=== PATIENT | male | born 1960 | race Caucasian/White ===

== ENCOUNTER 2018-11-26 19:40 | Inpatient (IN) | payer MEDICARE, MEDICAID ==
[~2018-11-26] VITALS: Ht 172.7 cm; Wt 62.1 kg
--- NOTE | 2018-11-26 20:06 | NUR ---
PATIENT [facility] MEDICAL FLOOR ON A 14 DAY HOLD FOR DTS,GD. PATIENT A/OX3. CALM AND COOPERATIVE, WITH PERIODS OF ANXIETY. IN NO ACUTE DISTRESS. NO MEDICAL COMPLAINTS ASIDE MILD PAIN ON RAJAT. UE WITH MOBILITY. BED ON LOCK POSITION. FALL PRECAUTION PER PROTOCOL. SUICIDE PRECAUTION INITIATED. 1:1 SITTER AT CLOSE PROXIMITY.
[2018-11-26 20:25] LABS: BASOPHILS # (AUTO) 0.1 K/uL (0.0-8.0); BASOPHILS % (AUTO) 0.9 % (0.0-2.0); EOSINOPHILS # (AUTO) 0.1 K/uL (0.0-0.7); EOSINOPHILS % (AUTO) 1.3 % (0.0-7.0); HEMATOCRIT 33.7 % (36.7-47.1); HEMOGLOBIN 11.5 g/dL (12.5-16.3); LYMPHOCYTES # (AUTO) 1.6 K/uL (20.0-40.0); LYMPHOCYTES % (AUTO) 28.8 % (20.5-51.5); MEAN CORPUSCULAR HGB CONC 34 g/dL (32.5-36.3); MEAN CORPUSCULAR VOLUME 94.1 fL (73.0-96.2); MONOCYTES # (AUTO) 0.5 K/uL (2.0-10.0); MONOCYTES % (AUTO) 9.2 % (0.0-11.0); NEUTROPHILS # (AUTO) 3.3 K/uL (1.8-8.9); NEUTROPHILS % (AUTO) 59.8 % (38.5-71.5); PLATELET COUNT (AUTO) 351 K/uL (152-348); RED BLOOD CELL COUNT(AUTO) 3.58 MIL/uL (4.06-5.63); WHITE BLOOD COUNT (AUTO) 5.5 K/uL (3.6-10.2)
--- NOTE | 2018-11-26 20:25 | NUR ---
ACTIVATED SLUDGE OPERATOR IN ROOM FOR CHEST XR.
[2018-11-26 20:28] LABS: CARBON DIOXIDE 34 mmol/L (21-32); CHLORIDE 103 mmol/L (98-107); CREATININE 1.1 mg/dL (0.6-1.3); GLUCOSE 100 mg/dL (74-106); POTASSIUM 3.8 mmol/L (3.5-5.1); UREA NITROGEN, BLOOD 12 mg/dL (7-18)
--- NOTE | 2018-11-26 20:29 | NUR ---
ALLIE BARROSO at bedside for MSE.
[2018-11-26 20:34] LABS: ALANINE AMINOTRANSFERASE 13 U/L (16-63); ALKALINE PHOSPHATASE 71 U/L (50-136); ASPARTATE AMINOTRANSFERASE 8 U/L (15-37); BILIRUBIN,DIRECT 0.1 mg/dL (0.0-0.2); BILIRUBIN,TOTAL 0.4 mg/dL (0.2-1.0); TOTAL PROTEIN, SERUM 6.7 g/dL (6.4-8.2)
[2018-11-26 20:42] LABS: THYROID STIMULATING HORMONE 2.108 mIU/mL (0.358-3.740)
[2018-11-26 20:43] LABS: ETHANOL < 3 MG/DL (0-0)
--- NOTE | 2018-11-26 20:49 | NUR ---
Patient states he urinated prior to arriving to ER, unable to urinate at this time. Fluids provided per patient request.
[2018-11-26 21:22] LABS: *BILIRUBIN,URIN 1+ (NEGATIVE); *CLARITY,URINE CLEAR (CLEAR); *COLOR,URINE DARK YELLOW (YELLOW); *KETONES,URINE TRACE (NEGATIVE); LEUKOCYTE ESTERASE ,URINE NEGATIVE (NEGATIVE); NITRITE, URINE NEGATIVE (NEGATIVE); UGLUCOSE NEGATIVE (NEGATIVE)
[2018-11-26 21:25] LABS: *BLOOD, URINE TRACE (NEGATIVE)
[2018-11-26 21:29] LABS: RBC,URINE 0-3 /HPF (0-3)
[2018-11-26 21:30] LABS: WBC,URINE 0-3 /HPF (0-3)
[2018-11-26] MEDS ORDERED: AMLO5TAB9 PO (21:30)
[2018-11-26] MEDS ORDERED: SENN-168 PO (21:30)
[2018-11-26] MEDS ORDERED: PANT40TA4 PO (21:30)
[2018-11-26] MEDS ORDERED: OLAN5TAB3 PO (21:30)
[2018-11-26 21:31] LABS: SQUAMOUS EPITHELIAL CELL,UR FEW /HPF (NONE SEEN)
[2018-11-26 21:35] LABS: *AMPHETAMINE, URINE NEGATIVE (NEGATIVE); *BARBITURATE, URINE NEGATIVE (NEGATIVE); *CANNABINOID, URINE NEGATIVE (NEGATIVE); *COCCAINE, URINE NEGATIVE (NEGATIVE); *OPIATE, URINE NEGATIVE (NEGATIVE); *PHENCYCLIDINE SCREEN,URINE NEGATIVE (NEGATIVE)
--- NOTE | 2018-11-26 21:40 | NUR ---
Report given to receiving RN. MRSA swab collected. Pt. admitted to GPS , under care of Dr. Razo/Veronika Belongs List completed
[2018-11-26] MEDS ORDERED: MAG HYDROX/AL HYDROX/SIMETH 30 ML LIQUID UDC PO PRN (21:45)
[2018-11-26] MEDS ORDERED: ACETAMINOPHEN 325 MG TABLET PO PRN (21:45)
[2018-11-26] MEDS ORDERED: TEMAZEPAM 7.5 MG CAPSULE PO PRN (21:45)
[2018-11-26] MEDS ORDERED: LORAZEPAM 1 MG TABLET PO PRN (21:45)
[2018-11-26] MEDS ORDERED: MAGNESIUM HYDROXIDE 30 ML LIQUID UDC PO PRN (21:45)
--- NOTE | 2018-11-26 23:02 | NUR ---
AT APPROX 2200, ADMITTED 58 YEARS OLD MALE FROM [facility] ER TO [facility] MHU ON A 5250 FOR DTS AND GD. PER HOLD, ON 11/20/18, PATIENT'S MOTHER REQUESTED A PSYCH EVALUATION D/T PATIENT STAYING IN A MOTEL 6 SINCE 11/03/18 AND HAS NOT BEEN EATING OR DRINKING, IS DEPRESSED AND STAY IN BED ALL DAY AND HAS BEEN OFF HIS PSYCH MEDS FOR 4 MONTHS. PATIENT WAS THEN TAKEN TO [facility] ED AND WAS PLACED ON A 5150 HOLD FOR DTS AND GD ON 11/20/18. ON 11/21/18, HE WAS TAKEN TO [facility]; HOWEVER, ON 11/22/18, HE WAS TRANSPORTED BACK TO [facility] ED D/T HEMATEMESIS. PATIENT WAS ADMITTED TO [facility] MED [facility]G UNIT AND WAS PLACED ON 14 DAY HOLD FOR GD AND DTS. ONCE MEDICALLY CLEARED, HE WAS TRANSP[facility] TO [facility]. HIS 14 DAY HOLD WILL BE UP ON 12/06/18. PER ADMISSION DISCHARGED NOTED, PATIENT HAS A PRIOR SA 3 WEEKS AGO BY CUTTING HIS WRIST. HE ALSO HAS NOT SEEN HIS DOCTOR IN 1.5 YEARS. UPON ADMISSION, PATIENT NOTED A/O X 4, ABLE TO AMBULATE WITH STEADY GAIT. HE WAS NOTED GUARDED, SUSPICIOUS, EASILY IRRITABLE. HE STATED, "I AM TIRED TO ANSWER THE SAME QUESTION OVER AND OVER AGAIN". HOWEVER, HE WAS ABLE TO SIGN HIS ADMISSION PAPER. UPON INTERVIEW, PATIENT STATED THAT HE IS FEELING DEPRESSED AND SUICIDAL WITHOUT A PLAN. WHEN ASK WHY? HE STATED, "JUST MY CONDITION MAKES ME DEPRESSED" BUT REFUSED TO ELABORATED FURTHER. HE ALSO DENIED HI/VH/AH. HE IS ABLE TO CFS. BODY ASSESSMENT WAS LIMITED D/T PATIENT POOR COMPLIANT, BUT ABRASIONS/SCABS WERE NOTED ON BOTH KNEES (PT REFUSED PICTURES). PATIENT HAD 2 TURKEY SANDWICHES AND THREE JUICES. ALTHOUGH PATIENT IS CONTINENT, HE REQUESTED TO WEAR A DIAPER, BUT REFUSED TO SAY WHY? PATIENT IS UNDER THE CARE OF DR. SHAMA HOYT. PATIENT WAS GIVEN UNIT RULES AND ADVISED OF HIS HOLD. WILL CONTINUE TO MONITOR.
[2018-11-27 00:42] VITALS: BP 122/87
[2018-11-27 07:30] VITALS: BP 106/73
--- NOTE | 2018-11-27 12:06 | NUR ---
Initial Discharge Note: Pt is currently homeless; however, pts mother is requesting pt be either transferred to [facility] or once hold is completed pt be discharged to mothers home at [facility] [address] [id number]. maintenance worker house trailer explained hospital transfer process to pts mother and father. SW will follow up with MD, patient, and pts mother Khalida Lemons [phone] or [phone] to discuss most appropriate discharge plans. SW will form a safe and proper discharge.
[2018-11-27] MEDS: OLANZAPINE ZYDIS 5 MG TAB.RAPDIS PO SCH ×2 (15:29→20:16)
[2018-11-27 16:00] VITALS: BP 106/71
[2018-11-27 21:01] VITALS: BP 106/69
[2018-11-28 07:30] VITALS: BP 128/82
[2018-11-28] MEDS: OLANZAPINE ZYDIS 5 MG TAB.RAPDIS PO SCH (08:35)
--- NOTE | 2018-11-28 15:30 | NUR ---
Gps/Georgette Gaxiola(pt's mother) called , wants to know pt's progress, planning to visit tomorrow from [place] . Adequate fluid intake provided, preferred to drink apple juice .Encouraged staying in the activity room, encouraged interacting with peers. Monitored needs, safety emphasized.
[2018-11-28 16:00] VITALS: BP 117/75
[2018-11-28 20:08] VITALS: BP 112/80
[2018-11-28] MEDS ORDERED: OLANZAPINE ZYDIS 5 MG TAB.RAPDIS PO SCH (21:00)
--- NOTE | 2018-11-28 23:56 | NUR ---
PATIENT COMPLIANT WITH MEDICATION REGIMENT. CONTINUE HAVING PASSIVE SI WITHOUT A PLAN. UPON INTERVIEW, HE STATED, "THINGS THAT HAPPENED TO IN MY LIFE ARE MAKING ME SAD". HE DENIED HI/VH/AH. PATIENT WAS REASSURED AND REDIRECTED. HE WAS REASSURED FOR HIS SAFETY. HE IS ABLE TO CFS. SNACKS WERE PROVIDED, HE WAS ABLE TO EAT 100% OF HIS SNACKS AT [facility]. WILL CONTINUE TO MONITOR.
[2018-11-29 07:30] VITALS: BP 101/79
[2018-11-29] MEDS: OLANZAPINE ZYDIS 5 MG TAB.RAPDIS PO SCH ×2 (09:21→20:54)
[2018-11-29 16:00] VITALS: BP 108/79
[2018-11-29 19:47] VITALS: BP 105/67
[2018-11-29] MEDS: SENNOSIDES 1 TABLET PO SCH (20:53)
[2018-11-30 07:30] VITALS: BP 129/86
[2018-11-30] MEDS: PANTOPRAZOLE SODIUM 40 MG TABLET.DR PO SCH (08:39)
[2018-11-30] MEDS: AMLODIPINE 5 MG TABLET PO SCH (08:39)
[2018-11-30] MEDS: OLANZAPINE ZYDIS 5 MG TAB.RAPDIS PO SCH ×2 (08:39→20:17)
[2018-11-30 16:00] VITALS: BP 123/76
[2018-11-30 20:09] VITALS: BP 106/74
[2018-11-30] MEDS: SENNOSIDES 1 TABLET PO SCH (20:17)
[2018-12-01 07:30] VITALS: BP 105/73
[2018-12-01] MEDS: OLANZAPINE ZYDIS 5 MG TAB.RAPDIS PO SCH ×2 (08:39→20:06)
[2018-12-01] MEDS: PANTOPRAZOLE SODIUM 40 MG TABLET.DR PO SCH (08:39)
[2018-12-01] MEDS: AMLODIPINE 5 MG TABLET PO SCH (08:40)
[2018-12-01 16:00] VITALS: BP 123/78
[2018-12-01 20:00] VITALS: BP 137/85
[2018-12-01] MEDS: SENNOSIDES 1 TABLET PO SCH (20:03)
[2018-12-02 07:30] VITALS: BP 127/85
[2018-12-02] MEDS: OLANZAPINE ZYDIS 5 MG TAB.RAPDIS PO SCH ×2 (08:19→20:37)
[2018-12-02] MEDS: PANTOPRAZOLE SODIUM 40 MG TABLET.DR PO SCH (08:19)
[2018-12-02] MEDS: AMLODIPINE 5 MG TABLET PO SCH (08:20)
--- NOTE | 2018-12-02 10:44 | NUR ---
FIREARMS REPORT: HUNTER has completed and submitted a [employer] report for a 5150 DTS certification.
[2018-12-02] MEDS: risperiDONE 1 MG/ML UDC PO SCH ×2 (15:14→20:38)
[2018-12-02 16:03] VITALS: BP 102/67
[2018-12-02 20:05] VITALS: BP 120/75
[2018-12-02] MEDS: SENNOSIDES 1 TABLET PO SCH (20:41)
--- NOTE | 2018-12-03 05:10 | NUR ---
PATIENT ALERT, NO COMPLAIN OF PAIN AT THIS TIME. PATIENT BEEN COOPERATIVE WITH CARE AND MEDICATIONS. WILL CONT TO MONITOR.
[2018-12-03 07:30] VITALS: BP 116/63
[2018-12-03] MEDS: risperiDONE 1 MG/ML UDC PO SCH ×2 (08:19→17:17)
[2018-12-03] MEDS: PANTOPRAZOLE SODIUM 40 MG TABLET.DR PO SCH (08:19)
[2018-12-03] MEDS: OLANZAPINE ZYDIS 5 MG TAB.RAPDIS PO SCH (08:19)
[2018-12-03] MEDS: AMLODIPINE 5 MG TABLET PO SCH (08:20)
[2018-12-03 15:28] VITALS: BP 120/76
[2018-12-03] MEDS: LIDOCAINE 5% PATCH TD SCH (17:18)
[2018-12-03 20:03] VITALS: BP 112/79
[2018-12-03] MEDS: SENNOSIDES 1 TABLET PO SCH (20:32)
[2018-12-03] MEDS ORDERED: OLANZAPINE ZYDIS 5 MG TAB.RAPDIS PO SCH (21:00)
[2018-12-04 07:30] VITALS: BP 120/81
[2018-12-04] MEDS: OLANZAPINE ZYDIS 5 MG TAB.RAPDIS PO SCH (08:56)
[2018-12-04] MEDS: AMLODIPINE 5 MG TABLET PO SCH (08:56)
[2018-12-04] MEDS: risperiDONE 1 MG/ML UDC PO SCH ×2 (08:57→16:24)
[2018-12-04] MEDS: PANTOPRAZOLE SODIUM 40 MG TABLET.DR PO SCH (08:57)
[2018-12-04] MEDS: LIDOCAINE 5% PATCH TD SCH (08:58)
[2018-12-04 16:00] VITALS: BP 107/74
[2018-12-04] MEDS: SENNOSIDES 1 TABLET PO SCH (20:42)
[2018-12-04 22:47] VITALS: BP 97/67
[2018-12-05 07:30] VITALS: BP 125/91
[2018-12-05] MEDS: PANTOPRAZOLE SODIUM 40 MG TABLET.DR PO SCH (08:18)
[2018-12-05] MEDS: AMLODIPINE 5 MG TABLET PO SCH (08:18)
[2018-12-05] MEDS: LIDOCAINE 5% PATCH TD SCH (08:19)
[2018-12-05] MEDS: risperiDONE 1 MG/ML UDC PO SCH ×2 (08:20→18:11)
[2018-12-05 16:00] VITALS: BP 125/82
[2018-12-05] MEDS: BENZTROPINE MESYLATE 1 MG TABLET PO SCH (18:08)
[2018-12-05] MEDS: SENNOSIDES 1 TABLET PO SCH (20:13)
[2018-12-05 20:52] VITALS: BP 112/73
--- NOTE | 2018-12-06 06:34 | NUR ---
GPS: Remain calm and cooperative. slept 8:30 hrs through the night. no agitation noted. no c/o pain or discomfort at this time. continue plan of care. resting in bed comfortably.
[2018-12-06 07:30] VITALS: BP 96/74
[2018-12-06] MEDS: PANTOPRAZOLE SODIUM 40 MG TABLET.DR PO SCH (08:50)
[2018-12-06] MEDS: BENZTROPINE MESYLATE 1 MG TABLET PO SCH ×2 (08:50→16:22)
[2018-12-06] MEDS: AMLODIPINE 5 MG TABLET PO SCH (08:50)
[2018-12-06] MEDS: risperiDONE 1 MG/ML UDC PO SCH ×2 (08:51→16:22)
[2018-12-06] MEDS: LIDOCAINE 5% PATCH TD SCH (08:51)
[2018-12-06 16:00] VITALS: BP 111/84
[2018-12-06 19:48] VITALS: BP 95/68
[2018-12-06] MEDS: SENNOSIDES 1 TABLET PO SCH (20:47)
[2018-12-07 07:30] VITALS: BP 113/84
[2018-12-07] MEDS: PANTOPRAZOLE SODIUM 40 MG TABLET.DR PO SCH (08:31)
[2018-12-07] MEDS: risperiDONE 1 MG/ML UDC PO SCH ×2 (08:32→17:35)
[2018-12-07] MEDS: BENZTROPINE MESYLATE 1 MG TABLET PO SCH ×2 (08:32→17:34)
[2018-12-07] MEDS: AMLODIPINE 5 MG TABLET PO SCH (08:32)
[2018-12-07] MEDS: LIDOCAINE 5% PATCH TD SCH (09:00)
[2018-12-07 16:21] VITALS: BP 94/62
[2018-12-07 20:53] VITALS: BP 101/72
[2018-12-07] MEDS: SENNOSIDES 1 TABLET PO SCH (21:00)
[2018-12-08] MEDS: SENNOSIDES 1 TABLET PO SCH ×2 (06:50→21:00)
[2018-12-08 07:30] VITALS: BP 125/80
--- NOTE | 2018-12-08 07:35 | NUR ---
PATIENT SLEPT FOR APPROX 7.30 HRS THROUGH THE NIGHT. PATIENT INITIALLY SENOKOT 1 TAB QHS LAST NIGHT; HOWEVER, HE REQUESTED TO TAKE IT THIS MORNING HE FELT CONSTIPATED. WILL CONTINUE TO MONITOR.
[2018-12-08] MEDS: AMLODIPINE 5 MG TABLET PO SCH (08:46)
[2018-12-08] MEDS: PANTOPRAZOLE SODIUM 40 MG TABLET.DR PO SCH (08:46)
[2018-12-08] MEDS: BENZTROPINE MESYLATE 1 MG TABLET PO SCH ×2 (08:46→17:04)
[2018-12-08] MEDS: risperiDONE 1 MG/ML UDC PO SCH ×2 (08:47→17:04)
[2018-12-08] MEDS: LIDOCAINE 5% PATCH TD SCH ×2 (08:47→09:00)
[2018-12-08 16:00] VITALS: BP 113/68
[2018-12-08 19:52] VITALS: BP 114/80
[2018-12-09 07:30] VITALS: BP 130/84
[2018-12-09] MEDS: BENZTROPINE MESYLATE 1 MG TABLET PO SCH ×2 (08:29→16:19)
[2018-12-09] MEDS: PANTOPRAZOLE SODIUM 40 MG TABLET.DR PO SCH (08:29)
[2018-12-09] MEDS: LIDOCAINE 5% PATCH TD SCH (08:29)
[2018-12-09] MEDS: AMLODIPINE 5 MG TABLET PO SCH (08:29)
[2018-12-09] MEDS: risperiDONE 1 MG/ML UDC PO SCH ×2 (08:29→16:19)
--- NOTE | 2018-12-09 10:35 | NUR ---
DC NOTE: Patient will be discharged back to his home [[address], [address], [place] [address]] where he lives with his mother. Transportation will be provided by patient mother, Louann Lemons [[phone]] at 7:00pm. Patient is AxOx4, denies suicidal ideations, is able to plan for self-care, and is agreeable to the discharge plan. Patient currently follows-up with Dr. Satya Garrett, psychiatrist, at [facility] [[address] [place] [address]; ]. traffic worker has called and left a voicemail with the clinic requesting a call back to schedule a follow-up psychiatrist appointment. traffic worker will provide updated information to note when received. Patient will follow-up with Dr. Jairo Main at [facility] [[address] [place] [address]; ]. traffic worker awaiting callback from scheduling department of appointment date and time and will update this note when information has been received. traffic worker has also provided patient and his mother with information for [employer]. Patient has been provided with mental health resources including [facility] Crisis Line , Yanely Louise , and the National Suicide Prevention Lifeline .
[2018-12-09 15:48] VITALS: BP 114/72
--- NOTE | 2018-12-09 18:15 | NUR ---
GPS: Nursing Notes: Discharge Notes: Patient is awake and responding to her name, cooperative with nursing care, compliant with his medications, following staff directions, denies any SI/HI, denies any AH/VH, denies any pain or discomfort, discharge home with his mother - Louann Lemons at [address], [place] [address], transported via private vehicle, picked by Louann (mother), took all his belongings with him. Patient currently follows-up with Dr. Satya Garrett, psychiatrist, at [facility] [[address] [place] [address]; ]. warm in worker has called and left a voicemail with the clinic requesting a call back to schedule a follow-up psychiatrist appointment. warm in worker will provide updated information to note when received. Patient will follow-up with Dr. Jairo Main at [facility] [[address] [place] [address]; ]. warm in worker awaiting callback from scheduling department of appointment date and time and will update this note when information has been received. warm in worker has also provided patient and his mother with information for IHSS. Patient has been provided with mental health resources including [facility] Crisis Line , Yanely Louise , and the National Suicide Prevention Lifeline .
--- NOTE | 2018-12-10 10:40 | NUR ---
Social service note: funeral workers followed-up with patient psychiatrist, Dr. Hernadez [[address] [place] [address]; ] and scheduled a follow-up appointment for Monday, December 24, 2018 at 1:30pm. Continuing care packet has been faxed. funeral workers has called and left a voicemail for patient mother, Zeenat Lemons [[phone]], informing her of scheduled follow-up appointment. funeral workers to follow-up as needed.
== END 2018-12-09 18:15 | disposition home or self-care (01) | DRG 885 ==
LOC: ER 19:40 → GPS 21:48
PROVIDERS: ADMIT Psychiatry & Neurology Psychosomatic Medicine; ATTEND Registered Nurse
DX: F25.0 Schizoaffective disorder, bipolar type (principal); Z59.0 Homelessness; R62.7 Adult failure to thrive; K21.9 Gastro-esophageal reflux disease without esophagitis; K31.9 Disease of stomach and duodenum, unspecified; G89.29 Other chronic pain; Z91.5 Personal history of self-harm; K59.00 Constipation, unspecified; D64.9 Anemia, unspecified; Z87.891 Personal history of nicotine dependence; M19.012 Primary osteoarthritis, left shoulder; I10 Essential (primary) hypertension
CPT/HCPCS: 36415; 71045; 80307; 84443; 85025; 93005; A4663; G0480